=== PATIENT | male | born 1990 | race Caucasian/White ===

== ENCOUNTER 2018-12-26 02:14 | Inpatient (IN) | payer BC ==
[2018-12-26] MEDS ORDERED: MEPERIDINE HCL 50 MG/ML ONE (02:35)
[2018-12-26] MEDS ORDERED: MAGNE/ALUM HYDROXD 30 ML UCUP ONE (02:35)
[2018-12-26] MEDS ORDERED: ONDANSETRON 4 MG/2 ML VIAL ONE (02:35)
[2018-12-26] MEDS ORDERED: NA CHLORIDE 0.9% 500 ML ONE (02:36)
[2018-12-26] MEDS ORDERED: LIDOCAINE VISCOUS 2% SOLN 15 ML UDC ONE (02:36)
[2018-12-26 03:03] LABS: Potassium 3.7 mmol/L (3.5-5.1)
[2018-12-26 03:04] LABS: Absolute Lymphocytes (CBC) 3.2 K/uL (0.7-4.9); Albumin 4.3 g/dL (3.4-5.0); Basophils % 0.7 % (0-1.3); Bilirubin Direct 0.1 mg/dL (0-0.2); Bilirubin Total 0.4 mg/dL (0.2-1.0); Hematocrit 41.9 % (39.6-49.0); Lymphocytes % 44.1 % (15.3-44.8); Protein, Total 8.4 g/dL (6.4-8.2); RBC Red Blood Cell Count 4.56 M/uL (4.33-5.43)
[2018-12-26] MEDS ORDERED: MORPHINE 4 MG/ML SYR ONE (03:20)
[2018-12-26] MEDS ORDERED: HYDROMORPHONE HCL 1 MG/ML INJ IV PRN ×3 (04:17→11:01)
[2018-12-26] MEDS ORDERED: MAGNESIUM HYDROXIDE 8% 30 ML PO PRN (04:17)
[2018-12-26] MEDS ORDERED: ONDANSETRON 4 MG/2 ML VIAL IV PRN (04:17)
[2018-12-26] MEDS ORDERED: ACETAMINOPHEN 500 MG TAB PO PRN (04:17)
--- NOTE | 2018-12-26 04:20 | ER ---
Nurse's Notes [facility] Name: Robert Olson Age: 28 yrs Sex: Male : 1990 Arrival Date: 12/26/2018 Time: 02:17 Bed 17 Private MD: Diagnosis: Ileus, unspecified;Intractable abdominal pain Presentation: 12/26 02:20 Presenting complaint: Patient states: Right upper quadrant abdominal pain since cc3 Friday but today is worst with nausea/vomiting. Transition of care: patient was not received from another setting of care. Onset of symptoms. Onset of symptoms was December 26, 2018. Risk Assessment: Do you want to hurt yourself or someone else? Patient reports no desire to harm self or others. Initial Sepsis Screen: Does the patient meet any 2 criteria? No. Patient's initial sepsis screen is negative. Does the patient have a suspected source of infection? Yes: Acute abdominal pain. Care prior to arrival: Medication(s) given: [place] 7.5 mg taken at home 30 mins BILL HIKER. 02:20 Method Of Arrival: Wheelchair cc3 02:20 Acuity: AMILCAR 3 cc3 Triage Assessment: 02:20 General: Appears in no apparent distress. uncomfortable, Behavior is cooperative, cc3 anxious. Pain: Complains of pain in right upper abdomen Pain currently is 10 out of 10 on a pain scale. Quality of pain is described as aching, Pain began 2-3 days ago. EENT: No signs and/or symptoms were reported regarding the EENT system. Neuro: Level of Consciousness is awake, alert, obeys commands, Oriented to person, place, time, situation, Appropriate for age. Cardiovascular: Denies chest pain, Heart tones S1 S2 present Capillary refill < 3 seconds in bilateral fingers Patient's skin is warm and dry. Respiratory: Airway is patent Respiratory effort is even, unlabored, Respiratory pattern is regular, symmetrical, Breath sounds are clear bilaterally. GI: Abdomen is flat, Bowel sounds present X 4 quads. Abd is soft X 4 quads Abdomen is tender to palpation in right upper abdomen. : No signs and/or symptoms were reported regarding the genitourinary system. Derm: Skin is intact, is healthy with good turgor, Skin is pink, warm \T\ dry. normal. Musculoskeletal: Circulation, motion, and sensation intact. Range of motion: intact in all extremities. Historical: - Allergies: 02:20 No Known Allergies; cc3 - PSHx: 02:20 Gastric Bypass; cc3 - Immunization history:: Adult Immunizations up to date. - Social history:: Smoking status: Patient/guardian denies using tobacco, never smoked. - Ebola Screening: : No symptoms or risks identified at this time. - Family history:: not pertinent. - Hospitalizations: : No recent hospitalization is reported. Screenin:20 Abuse screen: Denies threats or abuse. Denies injuries from another. Nutritional cc3 screening: No deficits noted. Tuberculosis screening: No symptoms or risk factors identified. Fall Risk Ambulatory Aid- None/Bed Rest/Nurse Assist (0 pts). Gait- Normal/Bed Rest/Wheelchair (0 pts) Mental Status- Oriented to own ability (0 pts). Assessment: 02:20 General: see triage assessment. cc3 03:13 Reassessment: Patient appears in no apparent distress at this time. Patient and/or cc3 family updated on plan of care and expected duration. Pain level reassessed. Patient is alert, oriented x 3, equal unlabored respirations, skin warm/dry/pink. Patient taken by cotton program technician to their department. 03:15 Reassessment: cotton program technician Alma called and said the patient cannot lie down in CT cc3 table because he is in so much pain, Dr. Davis informed and ordered for intravenous Morphine as charted and carried out. 04:30 Reassessment: Patient appears in no apparent distress at this time. Patient and/or cc3 family updated on plan of care and expected duration. Pain level reassessed. Patient is alert, oriented x 3, equal unlabored respirations, skin warm/dry/pink. Patient for admission, room available in 430, called for report but was told that the nurse who will receive will call me back. 04:45 Reassessment: HERMILO Fuchs called and report handed over to her for continuity cc3 of care and management. 05:00 Reassessment: Patient appears in no apparent distress at this time. Patient and/or cc3 family updated on plan of care and expected duration. Pain level reassessed. Patient is alert, oriented x 3, equal unlabored respirations, skin warm/dry/pink. Dr. Davis reviewed kub xray result post ngt insertion, tube was kinked so he ordered to put a new one. 05:20 Reassessment: Dr. Davis reviewed kub xray post ngt insertion and ordered to pull out cc3 the tube 2cm, then he ordered for another kub xray after pulling out 2cm of the ngt. 05:46 Reassessment: Dr. Davis reviewed kub xray post ngt insertion and confirmed that the cc3 placement is okay now. 05:48 Reassessment: Patient appears in no apparent distress at this time. Patient and/or cc3 family updated on plan of care and expected duration. Pain level reassessed. Patient is alert, oriented x 3, equal unlabored respirations, skin warm/dry/pink. Patient left ER for admission vitally stable by wheelchair escorted by me and the patient's family. No valuables left in the patient's room. Patient states symptoms have improved. Vital Signs: 02:20 BP 150 / 107; Pulse 78; Resp 20 S; Temp 98.1(O); Pulse Ox 100% on R/A; Weight 77.11 kg cc3 (R); Height 5 ft. 10 in. (177.80 cm) (R); Pain 10/10; 02:30 BP 147 / 95; Pulse 66; Resp 18 S; Pulse Ox 100% on R/A; cc3 03:00 BP 132 / 78; Pulse 67; Resp 18 S; Pulse Ox 100% on R/A; cc3 04:31 BP 158 / 92; Pulse 65; Resp 18 S; Pulse Ox 97% on R/A; cc3 05:25 BP 151 / 92; Pulse 70; Resp 17 S; Pulse Ox 100% on R/A; Pain 5/10; cc3 02:20 Body Mass Index 24.39 (77.11 kg, 177.80 cm) cc3 ED Course: 02:17 Patient arrived in ED. ag3 02:20 Rashel Davis MD is Attending Physician. rn 02:20 Patient has correct armband on for positive identification. Bed in low position. Call cc3 light in reach. Side rails up X 1. Pulse ox on. NIBP on. 02:20 Arm band placed on right wrist. cc3 02:28 Vonda Cisneros is Primary Nurse. cc3 02:32 Triage completed. cc3 02:35 Inserted saline lock: 20 gauge in right antecubital area, using aseptic technique. cc3 Blood collected. inserted by HERMILO Barkley. 03:22 Radiology exam delayed due to Patient can not tolerate exam at this time because of kw1 abdominal pain. Requested pain medication. 03:50 CT Abd/Pelvis - IV Contrast Only In Process Unspecified. EDMS 04:19 Tequila Nicholson MD is Hospitalizing Provider. rn 04:20 NGT: inserted 16 Fr. via right nare. verified placement of air over stomach, verified cc3 return of gastric contents, Placement verified by X-ray, to intermittent suction. Returned gastric contents. Patient tolerated well. 04:45 Patient admitted, IV remains in place. cc3 04:45 No provider procedures requiring assistance completed. cc3 04:52 X-ray completed. Portable x-ray completed in exam room. Patient tolerated procedure mh1 well. 05:00 NGT: Removed intact. cc3 05:05 NGT: inserted 16 Fr. via left nare. verified placement of air over stomach, verified cc3 return of gastric contents, Placement verified by X-ray, to intermittent suction. Returned gastric contents. Patient tolerated well. inserted by HERMILO Hendrickson. 05:45 X-ray completed. Portable x-ray completed in exam room. Patient tolerated procedure mh1 well. Administered Medications: 02:30 Drug: GI Cocktail without - (Maalox Suspension 30 ml, Lidocaine Liquid 2 % 15 cc3 ml) Route: PO; 03:00 Follow up: Response: No adverse reaction cc3 02:35 Drug: Demerol 50 mg {Note: RASS 0.} Route: IVP; Site: right antecubital; cc3 03:15 Follow up: Response: No adverse reaction; Pain is unchanged, physician notified; RASS: cc3 Alert and Calm (0) 02:35 Drug: NS 0.9% 500 ml Route: IV; Rate: bolus; Site: right antecubital; cc3 03:30 Follow up: Response: No adverse reaction; IV Status: Completed infusion; IV Intake: cc3 500ml 02:40 Drug: Zofran 4 mg Route: IVP; Site: right antecubital; cc3 03:00 Follow up: Response: No adverse reaction; Nausea is decreased cc3 03:20 Drug: morphine 4 mg {Note: RASS 0.} Route: IVP; Site: right antecubital; cc3 04:23 Follow up: Response: No adverse reaction; Pain is unchanged, physician notified cc3 04:30 Drug: Dilaudid 1 mg {Note: RASS 0.} Route: IVP; Site: right antecubital; cc3 05:00 Follow up: Response: No adverse reaction; Pain is decreased cc3 Intake: 03:30 IV: 500ml; Total: 500ml. cc3 Outcome: 04:19 Decision to Hospitalize by Provider. rn 04:45 Admitted to Tele accompanied by nurse, family with patient, via stretcher, with chart, cc3 Report called to HERMILO Fuchs 04:45 Condition: stable 04:45 Instructed on the need for admit, Demonstrated understanding of instructions. 05:51 Patient left the ED. cc3 Signatures: Dispatcher [employer] EDMS Shaina Partida 1 Rashel Davis MD MD rn Wilhelm, Kimberly kw1 Vonda Cisneros cc3 Yesenia Patel3 Corrections: (The following items were deleted from the chart) 06:42 05:25 BP 151 / 92; Pulse 70bpm; Resp 17bpm; Spontaneous; Pulse Ox 100% RA; cc3 cc3 06:48 02:20 Presenting complaint: Patient states: Right upper quadrant pain since Friday cc3 but today is worst. cc3
--- NOTE | 2018-12-26 04:21 | EDPHYS ---
Physician Documentation [facility] Name: Robert Olson Age: 28 yrs Sex: Male : 1990 Arrival Date: 12/26/2018 Time: 02:17 Bed 17 Private MD: ED Physician Rashel Davis HPI: 12/26 02:37 This 28 yrs old Male presents to ER via Wheelchair with complaints of rn Abdominal Pain. 02:37 The patient presents with abdominal pain in the epigastric area, in the upper abdomen, rn in the periumbilical area. Onset: The symptoms/episode began/occurred 3 day(s) ago. The symptoms do not radiate. Associated signs and symptoms: Pertinent positives: nausea, vomiting, Pertinent negatives: blood in stools, diarrhea, dysuria, fever, shortness of breath, testicular pain, vomiting blood. Modifying factors: The symptoms are alleviated by nothing, the symptoms are aggravated by food, touching the area. Severity of pain: At its worst the pain was moderate in the emergency department the pain is unchanged. The patient has not experienced similar symptoms in the past. REports mid and upper abd pain, began intermittently 3 days ago, worse this AM, assoc with nausea and vomiting from the pain, no fever, no diarrhea, had BM yesterday and formed, no blood. Reports gastric bypass in past without any complications. . Historical: - Allergies: 02:20 No Known Allergies; cc3 - PSHx: 02:20 Gastric Bypass; cc3 - Immunization history:: Adult Immunizations up to date. - Social history:: Smoking status: Patient/guardian denies using tobacco, never smoked. - Ebola Screening: : No symptoms or risks identified at this time. - Family history:: not pertinent. - Hospitalizations: : No recent hospitalization is reported. ROS: 02:37 Constitutional: Negative for fever, chills, and weight loss, Eyes: Negative for injury, rn pain, redness, and discharge, Neck: Negative for injury, pain, and swelling, Cardiovascular: Negative for chest pain, palpitations, and edema, Respiratory: Negative for shortness of breath, cough, wheezing, and pleuritic chest pain, Abdomen/GI: + abd pain and nausea/vomiting MS/Extremity: Negative for injury and deformity, Skin: Negative for injury, rash, and discoloration, Neuro: Negative for headache, weakness, numbness, tingling, and seizure. Exam: 02:37 Constitutional: This is a well developed, well nourished patient who is awake, alert, rn and in no acute distress. Constantly burping. Head/Face: Normocephalic, atraumatic. Eyes: Pupils equal round and reactive to light, extra-ocular motions intact. Lids and lashes normal. Conjunctiva and sclera are non-icteric and not injected. Cornea within normal limits. Periorbital areas with no swelling, redness, or edema. ENT: MMM Cardiovascular: Regular rate and rhythm. No pulse deficits. Respiratory: No increased work of breathing, no retractions or nasal flaring. Abdomen/GI: soft, + mid and upper/epigastric tenderness, no rebound or peritoneal signs. MS/ Extremity: Pulses equal, no cyanosis. Neurovascular intact. Full, normal range of motion. Equal circumference. Neuro: Awake and alert, GCS 15 Vital Signs: 02:20 BP 150 / 107; Pulse 78; Resp 20 S; Temp 98.1(O); Pulse Ox 100% on R/A; Weight 77.11 kg cc3 (R); Height 5 ft. 10 in. (177.80 cm) (R); Pain 10/10; 02:30 BP 147 / 95; Pulse 66; Resp 18 S; Pulse Ox 100% on R/A; cc3 03:00 BP 132 / 78; Pulse 67; Resp 18 S; Pulse Ox 100% on R/A; cc3 04:31 BP 158 / 92; Pulse 65; Resp 18 S; Pulse Ox 97% on R/A; cc3 05:25 BP 151 / 92; Pulse 70; Resp 17 S; Pulse Ox 100% on R/A; Pain 5/10; cc3 02:20 Body Mass Index 24.39 (77.11 kg, 177.80 cm) cc3 MDM: 02:20 Patient medically screened. rn 04:16 Differential diagnosis: bowel obstruction, cholecystitis, Cholelithiasis, gastritis, rn non-specific abd pain, pancreatitis, ileus. 04:18 Data reviewed: vital signs, nurses notes, lab test result(s), radiologic studies, CT rn scan, and as a result, I will admit patient. Counseling: I had a detailed discussion with the patient and/or guardian regarding: the historical points, exam findings, and any diagnostic results supporting the discharge/admit diagnosis, lab results, radiology results, the need for further work-up and treatment in the hospital. Response to treatment: the patient's symptoms have mildly improved after treatment, and as a result, I will admit patient. Admission orders: after a detailed discussion of the patient's condition and case, the admit orders are written by me. ED course: No definitive transition point on CT abdomen, most likely ileus, will hydrate, put NG tube, and admit to Dr. Nicholson with Dr. Fischer consult. . 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 Nursing instructed to insert NG tube, short, approx 10-15 cm shorter than normal given gastric bypass. Tolerated insertion without complication, will get KUB to eval placement. . 05:29 ED course: First NG tube coiled in esophagus, replacement placed by Charge nurse will Hendrickson, again, measuring about 15cm shorter than normal NG tube placement length, kub shows placement just below diaphragm, pulled back 3 cm to be overly cautious and getting small amounts of clear fluid/air return. . 12/26 02:27 Order name: Basic Metabolic Panel; Complete Time: 03:10 rn 12/26 02:27 Order name: CBC with Diff; Complete Time: 03:10 rn 12/26 02:27 Order name: Creatinine for Radiology; Complete Time: 03:03 rn 12/26 02:27 Order name: Hepatic Function; Complete Time: 03:10 rn 12/26 02:27 Order name: Lipase; Complete Time: 03:10 rn 12/26 04:22 Order name: Comprehensive Metabolic Panel EDMS 12/26 04:22 Order name: Comprehensive Metabolic Panel EDMS 12/26 04:23 Order name: CBC with Automated Diff EDMS 12/26 04:23 Order name: CBC with Automated Diff EDMS 12/26 04:23 Order name: Lipase EDMS 12/26 04:23 Order name: Lipase EDMS 12/26 04:23 Order name: Magnesium EDMS 12/26 04:23 Order name: Magnesium EDMS 12/26 04:23 Order name: Phosphorus EDMS 12/26 02:27 Order name: CT Abd/Pelvis - IV Contrast Only rn 12/26 04:23 Order name: Phosphorus EDMS 12/26 04:24 Order name: Abdomen Acute Series EDMS 12/26 04:24 Order name: CBC with Automated Diff EDMS 12/26 04:24 Order name: Comprehensive Metabolic Panel EDMS 12/26 04:24 Order name: Magnesium EDMS 12/26 04:25 Order name: XRCORAZON CALLAHANB rn 12/26 05:07 Order name: XRAY KUB rn 12/26 05:29 Order name: XRAY KUB rn 12/26 02:27 Order name: IV Saline Lock; Complete Time: 02:38 rn 12/26 02:27 Order name: Labs collected and sent; Complete Time: 02:38 rn 12/26 04:16 Order name: NG Tube; Complete Time: 04:20 rn 12/26 04:23 Order name: CONS Physician Consult EDMS 12/26 04:23 Order name: NPO EDMS Administered Medications: 02:30 Drug: GI Cocktail without - (Maalox Suspension 30 ml, Lidocaine Liquid 2 % 15 cc3 ml) Route: PO; 03:00 Follow up: Response: No adverse reaction cc3 02:35 Drug: Demerol 50 mg {Note: RASS 0.} Route: IVP; Site: right antecubital; cc3 03:15 Follow up: Response: No adverse reaction; Pain is unchanged, physician notified; RASS: cc3 Alert and Calm (0) 02:35 Drug: NS 0.9% 500 ml Route: IV; Rate: bolus; Site: right antecubital; cc3 03:30 Follow up: Response: No adverse reaction; IV Status: Completed infusion; IV Intake: cc3 500ml 02:40 Drug: Zofran 4 mg Route: IVP; Site: right antecubital; cc3 03:00 Follow up: Response: No adverse reaction; Nausea is decreased cc3 03:20 Drug: morphine 4 mg {Note: RASS 0.} Route: IVP; Site: right antecubital; cc3 04:23 Follow up: Response: No adverse reaction; Pain is unchanged, physician notified cc3 04:30 Drug: Dilaudid 1 mg {Note: RASS 0.} Route: IVP; Site: right antecubital; cc3 05:00 Follow up: Response: No adverse reaction; Pain is decreased cc3 Disposition: 12/26/18 04:19 Hospitalization ordered by Tequila Nicholson for Inpatient Admission. Preliminary diagnosis are Ileus, unspecified, Intractable abdominal pain. - Bed requested for Telemetry/MedSurg (Inpatient). - Status is Inpatient Admission. cc3 - Condition is Stable. - Problem is new. - Symptoms have improved. UTI on Admission? No Signatures: Dispatcher [employer] EDMS Shaina Estrada RN RN Rashel Davis MD MD rn Cordel, Charlene cc3 Corrections: (The following items were deleted from the chart) 04:24 04:19 Hospitalization Ordered by Tequila Nicholson MD for Inpatient Admission. Preliminary diagnosis is Ileus, unspecified; Intractable abdominal pain. Bed requested for Telemetry/MedSurg (Inpatient). Status is Inpatient Admission. Condition is Stable. Problem is new. Symptoms have improved. UTI on Admission? No. rn 05:51 04:24 12/26/2018 04:19 Hospitalization Ordered by Tequila Nicholson MD for Inpatient cc3 Admission. Preliminary diagnosis is Ileus, unspecified; Intractable abdominal pain. Bed requested for Telemetry/MedSurg (Inpatient). Status is Inpatient Admission. Condition is Stable. Problem is new. Symptoms have improved. UTI on Admission? No. mw
[2018-12-26] MEDS ORDERED: Levofloxacin500mg IV 500 MG/100 ML BAG IV SCH (05:00)
[2018-12-26] MEDS ORDERED: NA CHLORIDE 0.9% 1,000 ML IV SCH ×2 (05:00→12:00)
[2018-12-26] MEDS ORDERED: KCL 20 MEQ/100 mL IVPB 20 MEQ/100 ML BAG IV SCH (05:00)
[2018-12-26] MEDS ORDERED: METRONIDAZOLE 500mg IVPB 500 MG/100 ML BAG IV SCH (06:00)
[2018-12-26 06:02] VITALS: O2SAT 100
[2018-12-26 06:10] VITALS: BMI 25.0
--- NOTE | 2018-12-26 07:54 | P.HP ---
Certification for Inpatient Patient admitted to: Inpatient With expected LOS: >2 Midnights Patient will require the following post-hospital care: None Practitioner: I am a practitioner with admitting privileges, knowledge of patient current condition, hospital course, and medical plan of care. Services: Services provided to patient in accordance with Admission requirements found in Title 42 Section 412.3 of the Code of Federal Regulations Patient History Date of Service: 12/26/18 Reason for admission: Ileus versus small-bowel obstruction History of Present Illness: Patient is a 28-year-old gentleman who has a history of laparoscopic gastric bypass procedure. He started having abdominal pain on . He took a laxative as he felt constipated. He was able to have a bowel movement Friday morning. He has not had a bowel movement since then. He has not been passing gas either. He was having nausea and vomiting so he came into the emergency room. In the ER his CT scan revealed a possible ileus versus early small-bowel obstruction. He will be admitted to the hospital with NG tube to suction. IV hydration and IV antibiotics for now. Hopefully, he starts feeling better and we can clamp his NGT tomorrow. Allergies No Known Allergies Allergy (Verified 12/26/18 05:59) Home Medications: NK [No Home Meds] 12/26/18 - Past Medical/Surgical History Has patient received pneumonia vaccine in the past: No Past Medical History: Patient denies medical history -: Gastric Bypass January 2018 - Family History Father Family History: Reviewed- Non-Contributory - Social History Smoking Status: Never smoker Alcohol use: No CD- Drugs: No Caffeine use: No Place of Residence: Home Review of Systems 10-point ROS is otherwise unremarkable Physical Examination - Vital Signs Temperature: 97.6 F Blood Pressure: 170/88 Pulse: 60 Respirations: 20 Pulse Ox (%): 100 - Physical Exam General: Alert, In no apparent distress, Oriented x3 HEENT: Atraumatic, PERRLA, Mucous membr. moist/pink, EOMI, Sclerae nonicteric Neck: Supple, 2+ carotid pulse no bruit, No LAD, Without JVD or thyroid abnormality Respiratory: Clear to auscultation bilaterally, Normal air movement Cardiovascular: Regular rate/rhythm, Normal S1 S2, No murmurs Gastrointestinal: Normal bowel sounds, Soft and benign, No tenderness, Distended Musculoskeletal: No clubbing, No swelling, No tenderness Integumentary: No rashes Neurological: Normal gait, Normal speech, Normal strength at 5/5 x4 extr, Normal tone, Sensation intact, Cranial nerves 3-12 intact, Normal affect Lymphatics: No axilla or inguinal lymphadenopathy - Studies Laboratory Data (last 24 hrs) 12/26/18 02:30: Creatinine 1.03 12/26/18 02:30: WBC 7.2, Hgb 14.1, Hct 41.9, Plt Count 298 12/26/18 02:30: Sodium 140, Potassium 3.7, BUN 19 H, Creatinine 1.04, Glucose 89 , Total Bilirubin 0.4, AST 29, ALT 56, Alkaline Phosphatase 91, Lipase 227 Assessment & Plan - Problems (Diagnosis) (1) Ileus Current Visit: Yes Status: Acute (2) SBO (small bowel obstruction) Current Visit: Yes Status: Acute (3) H/O gastric bypass Current Visit: Yes Status: Acute - Plan 1. Continue with IV hydration 2. Continue with IV antibiotics 3. Continue with pain control 4. NPO 5. General surgery consultation; 6. Serial H&H, and we will monitor CBC, BMP, LFTs and lipase along with electrolytes. 7. GI and DVT prophylaxis Discharge Plan: Home Plan to discharge in: Greater than 2 days - Advance Directives Does patient have a Living Will: No Does patient have a Durable POA for Healthcare: No - Code Status/Comfort Care Code Status Assessed: Yes Code Status: Full Code Critical Care: No Time Spent Managing PTS Care (In Minutes): 45
[2018-12-26] MEDS ORDERED: INFLUENZA VACCINE (for 3y+) 0.5 ML DOSE IMVAC ONE (09:00)
[2018-12-26] MEDS ORDERED: ENOXAPARIN 30 MG/0.3 ML SQ SCH (09:00)
[2018-12-26] MEDS ORDERED: HYDROMORPHONE HCL 1 MG/ML INJ IV ONE ×2 (09:30→09:31)
[2018-12-26 10:00] LABS: Absolute Lymphocytes (CBC) 0.5 K/uL (0.7-4.9); Basophils % 0.1 % (0-1.3); Hematocrit 42.6 % (39.6-49.0); Lymphocytes % 5.3 % (15.3-44.8); MPV 8.9 fL (7.6-11.3); RBC Red Blood Cell Count 4.59 M/uL (4.33-5.43)
--- NOTE | 2018-12-26 10:56 | RAD REPORT ---
EXAM DESCRIPTION: RAD - Chest Single View - 12/26/2018 4:52 am CLINICAL HISTORY: post ngt insertion Chest pain. COMPARISON: CHEST SINGLE VIEW dated 03/01/2012 FINDINGS: Portable technique limits examination quality. The lungs are grossly clear. The heart is normal in size. NG tube appears folded on itself at the mid esophagus level. Suggests repositioning.
--- NOTE | 2018-12-26 10:59 | RAD REPORT ---
EXAM DESCRIPTION: RAD - Abdomen 1 View (KUB) - 12/26/2018 4:52 am CLINICAL HISTORY: NG tube placement Pain COMPARISON: No comparisons FINDINGS: NG tube remains coiled on itself with the midesophagus level.
--- NOTE | 2018-12-26 10:59 | RAD REPORT ---
EXAM DESCRIPTION: RAD - Abdomen 1 View (KUB) - 12/26/2018 5:30 am CLINICAL HISTORY: NG tube placement Pain COMPARISON: Abdomen 1 View (KUB) dated 12/26/2018 FINDINGS: NG tube has been repositioned with its tip in the stomach.
[2018-12-26] MEDS ORDERED: GLUCAGON 1 MG/VIAL IM PRN (11:00)
[2018-12-26] MEDS ORDERED: PIPER/TAZO/NS 3.375gm 3.375 GM/100 ML BAG IVPB ONE (11:00)
[2018-12-26] MEDS ORDERED: D50W 25 GM/50 ML SYRINGE IV PRN (11:00)
--- NOTE | 2018-12-26 11:00 | RAD REPORT ---
EXAM DESCRIPTION: RAD - Abdomen 1 View (KUB) - 12/26/2018 5:45 am CLINICAL HISTORY: NG tube positioning Pain COMPARISON: Abdomen 1 View (KUB) dated 12/26/2018; Abdomen 1 View (KUB) dated 12/26/2018 FINDINGS: NG tube tip is in the stomach proximally.
[2018-12-26 11:03] LABS: Albumin 4.4 g/dL (3.4-5.0); Bilirubin Total 0.5 mg/dL (0.2-1.0); Magnesium 1.8 mg/dL (1.8-2.4); Potassium 4.8 mmol/L (3.5-5.1); Protein, Total 8.6 g/dL (6.4-8.2)
[2018-12-26] MEDS ORDERED: INSULIN -REGULAR HUMAN 50 UNIT/0.5 ML ML SQ SCH (11:30)
--- NOTE | 2018-12-26 11:56 | P.DS ---
Admission Date: 12/26/18 Discharge Date: 12/29/18 Disposition: TRANSFER TO [facility] Discharge Condition: FAIR Reason for Admission: Ileus versus small-bowel obstruction Consultations: General Surgery-Dr. Fischer. - Problems (1) H/O gastric bypass Status: Acute (2) Ileus Status: Acute (3) SBO (small bowel obstruction) Status: Acute Brief History of Present Illness: 28-year-old gentleman with a history of laparoscopic gastric bypass surgery done in January 2018 presented to the emergency department with a 2 day history of abdominal pain, nausea and vomiting and constipation. CT scan done in the emergency department report small-bowel dilatation and air- fluid levels consistent partial bowel obstruction or ileus. Patient was admitted for further management. Hospital Course: NG-tube to suction was inserted with no significant. His pain was uncontrolled , and his pain level deemed disproportionate to findings on physical examination. The patient was evaluated by Dr. Fischer, who expressed concern for volvolus with ischemic bowel. Patient and family contacted Dr. Heredia at [facility] who performed his gastric bypass surgery. Dr. Heredia recommended transfer to his service for urgent surgery. Patient is deemed clinically stable for transfer at this time. Vital Signs/Physical Exam: Temp Pulse Resp BP Pulse Ox 97.1 F 73 16 149/84 H 98 12/26/18 08:00 12/26/18 08:00 12/26/18 10:01 12/26/18 08:00 12/26/18 10:01 General: Alert, Oriented x3, Moderate distress (Due to pain) HEENT: Mucous membr. moist/pink Neck: Supple, JVD not distended Respiratory: Clear to auscultation bilaterally, Normal air movement Cardiovascular: No edema, Regular rate/rhythm, Normal S1 S2 Capillary refill: <2 Seconds Gastrointestinal: Non-distended, Hyperactive, Tenderness (Diffuse tenderness) Musculoskeletal: No swelling Integumentary: No rashes Laboratory Data at Discharge: WBC 9.4 K/uL (4.3-10.9) D 12/26/18 09:45 Hgb 14.3 g/dL (13.6-17.9) 12/26/18 09:45 Hct 42.6 % (39.6-49.0) 12/26/18 09:45 Plt Count 305 K/uL (152-406) 12/26/18 09:45 Sodium 137 mmol/L (136-145) 12/26/18 09:45 Potassium 4.8 mmol/L (3.5-5.1) 12/26/18 09:45 BUN 16 mg/dL (7-18) 12/26/18 09:45 Creatinine 1.05 mg/dL (0.55-1.3) 12/26/18 09:45 Glucose 175 mg/dL (74-106) H 12/26/18 09:45 Magnesium 1.8 mg/dL (1.8-2.4) 12/26/18 09:45 Total Bilirubin 0.5 mg/dL (0.2-1.0) 12/26/18 09:45 AST 28 U/L (15-37) 12/26/18 09:45 ALT 54 U/L (12-78) 12/26/18 09:45 Alkaline Phosphatase 90 U/L (45-117) 12/26/18 09:45 Lipase 227 U/L (73-393) 12/26/18 02:30 Home Medications: NK [No Home Meds] 12/26/18
[2018-12-26 12:30] VITALS: BP 148/90; TEMP 97.9
[2018-12-26 12:45] LABS: Blood Morphology Comment NOT SEEN (NOT SEEN); Platelet Estimate ADEQ
--- NOTE | 2018-12-26 16:26 | CON ---
Date of Consultation: 12/26/2018 Reason For Consultation: Possible small bowel obstruction. Brief History Of Present Illness: The patient is a 28-year-old gentleman with a history of laparoscopic gastric bypass procedure approximately in January [address] Dominique in [place]. He started having abdominal pain beginning Friday evening, morning, and started feeling wors ening abdominal bloating, distention, nausea, and abdominal pain. He took a laxative and felt that priti e was concerned about constipation. He is able to have a bowel movement on Friday morning. He has h ad this intermittently from time to time, but it got progressively worse over the course of the day. As such he came to the emergency room with the above-stated complaints. He has had decreased bowel function, decreased passing gas, nausea, vomiting, and at that time he came to the emergency room wit h the above-stated complaints. Past Medical History: Only significant for Anais-en-Y gastric bypass in January 2018. Allergies: NO KNOWN DRUG ALLERGIES. Medications: None. Family History: Reviewed and noncontributory. He denies smoking, alcohol, or recreational drug use. Review of Systems: A 10-point review of systems other than HPI, denies. Physical Examination: Vital Signs: At the time of my examination, his BMI is 25. His vital signs were blood pressure 149/ 84, pulse of 72, respiratory rate 16, temperature 97.1. General: He is awake, alert, and oriented. Psychiatric: He is appropriate and conversive. He appears somewhat uncomfortable and is sitting up in bed, grabbing his abdomen and appears in obqu-ms-itdudaut distress. HEENT: Otherwise normocephalic. His sclerae are anicteric. His mucous membranes are somewhat dry. His oropharynx is otherwise clear. Neck: Supple. No JVD. Chest: Normal expansion and excursion. Cardiovascular: Regular rate and rhythm. Pulmonary: Clear to auscultation bilaterally. Abdomen: Soft with minimal tenderness globally and minimal distention to the left side of the abdome n. No guarding. No rebound. No focal peritonitis. Extremities: No clubbing, cyanosis, or edema. Skin: Warm and dry. Laboratory Data: White blood cell count of 9.4, his hemoglobin is 14.1, hematocrit of 41.9, platelet count is 298 on admission. I have reordered his labs. His neutrophils are 92 at this point up from 45 on admission. His sodium is 137, potassium 4.8, chloride 102, carbon dioxide 25, BUN 16, creatin ine 1.05, glucose is 175 up from 89 on admission. Lactic acid is 2.9, drawn just now. His calcium i s 9.0. Magnesium 1.8. Total bilirubin 0.5. His AST is 28, ALT 54, alkaline phosphatase is 90. His lipase was 227 on admission. His procalcitonin is less than 0.05. Imaging: He had a CT scan performed of the abdomen and pelvis. I personally reviewed with Dr. Corrales. He has some distended loops of small bowel in the left lower quadrant concerning for an internal he rnia. It is not obviously seen, however, and there was no obvious transition point. There is some m inimal wall thickening to the small bowel loops by my interpretation. No obvious mesenteric swirling and no obvious Rees defect type obstructive picture. Assessment And Plan: This is a 28-year-old male who comes in with likely bowel obstruction, possibly from an internal hernia and pain out of proportion to physical exam concerning for ischemia. 1.Intravenous fluid hydration. I will give him a bolus of IV fluids. 2.Change antibiotics to Zosyn 3.375 IV q.6. 3.The patient and family have requested transfer to Dr. Dominique and I have spoken to Dr. Dominique, who call ed me specifically to ask that the patient be transferred. The patient is hemodynamically stable at this time. I have reviewed this with Dr. Cavazos. Dr. Cavazos will initiate transfer to [place]. Dr Gladys Dominique has accepted the patient in [place] and hospital apparently has accepted the patient. Theref ore, he is hemodynamically stable and stable for transfer. I have discussed the case with Dr. Catina sher nd the risks, benefits, and alternatives of the transfer versus staying here for possible exploratory laparoscopy, possible laparotomy including, but not limited to bleeding, infection, damage to surrou nding tissue, need for further operation or procedures. Patient agrees to proceed as indicated. SENTHIL/RADHA Voice ID: [id number] Report ID: [id number]
--- NOTE | 2018-12-28 11:55 | RAD REPORT ---
EXAM DESCRIPTION: CT Abdomen and Pelvis With Intravenous Contrast CLINICAL HISTORY: The patient is 28 years old and is Male; mid abd pain, vomiting TECHNIQUE: Axial computed tomography images of the abdomen and pelvis with intravenous contrast. S agittal and coronal reformatted images were created and reviewed. This CT exam was performed using one or more of the following dose reduction techniques: automated exposure control, adjustment of t he mA and/or kV according to patient size, and/or use of iterative reconstruction technique. COMPARISON: No relevant prior studies available. FINDINGS: LUNG BASES: Unremarkable. No mass. No consolidation. ABDOMEN: LIVER: Unremarkable. No mass. GALLBLADDER AND BILE DUCTS: No calcified stones. No ductal dilation. PANCREAS: No ductal dilation. No mass. SPLEEN: Unremarkable. ADRENALS: Unremarkable. No mass. KIDNEYS AND URETERS: Unremarkable. The kidneys enhance symmetrically. No obstructing renal or ur eteral calculus is seen. No hydronephrosis or hydroureter. No perinephric fluid or stranding. STOMACH AND BOWEL: Postsurgical change consistent with a gastric bypass is noted. Several dilate d loops of small bowel present within the right abdomen with air-fluid levels. Definite transition po int is not seen. A moderate amount stool is present throughout colon. PELVIS: APPENDIX: The appendix is normal in caliber without surrounding inflammation. BLADDER: Unremarkable. No mass. REPRODUCTIVE: Unremarkable as visualized. ABDOMEN and PELVIS: INTRAPERITONEAL SPACE: Trace free fluid is present within the pelvis. No free air. BONES/JOINTS: No acute fracture. SOFT TISSUES: The soft tissues are normal. VASCULATURE: Unremarkable. No abdominal aortic aneurysm. LYMPH NODES: Unremarkable. No enlarged lymph nodes. IMPRESSION: Findings suggestive of small bowel ileus/developing obstruction. Electronically signed by: Kelsey Staley MD 12/26/2018 3:56 AM CDT Due to temporary technical issues with the PACS/Fluency reporting system, reports are being signed by the in house radiologist as a courtesy to ensure prompt reporting. The interpreting radiologist is f eberly responsible for the content of the report.
== END 2018-12-26 13:00 | disposition short-term general hospital (02) | DRG 390 ==
LOC: ER 02:14 → 4TH 04:49
PROVIDERS: ADMIT Hospitalist; ATTEND Hospitalist
DX: K56.609 Unspecified intestinal obstruction, unspecified as to partial versus complete obstruction (principal); K56.7 Ileus, unspecified; Z98.84 Bariatric surgery status
CPT/HCPCS: 36415; 71045; 74018; 74177; 80048; 80053; 80076; 82962; 83605; 83690; 83735; 84145; 85025; 86140; 96361; 96374; 96375; 99285; J1170; J1650; J2175; J2405; J2543; J7030; J7040; Q9967

== ENCOUNTER 2019-05-17 08:11 | Emergency (ER) | payer BC ==
[2019-05-17] MEDS ORDERED: NA CHLORIDE 0.9% 1,000 ML ONE (09:09)
[2019-05-17] MEDS ORDERED: CEFTRIAXONE/SWI 1gm 1 GM/10 ML SYR ONE (09:09)
[2019-05-17 09:12] LABS: Protime INR 1.06
[2019-05-17 09:15] LABS: Absolute Lymphocytes (CBC) 1.8 K/uL (0.7-4.9); Basophils % 0.9 % (0-1.3); Hematocrit 40.2 % (39.6-49.0); MPV 8.8 fL (7.6-11.3); RBC Red Blood Cell Count 4.22 M/uL (4.33-5.43)
[2019-05-17 09:16] LABS: Urine Appearance CLOUDY; Urine Blood 3+ (NEG); Urine Color OTHER; Urine Glucose NEGATIVE (NEG); Urine Protein 3+ (NEG); Urine Specific Gravity 1.025 (1.005-1.030)
[2019-05-17 09:17] LABS: Urine Bilirubin NEGATIVE (NEG)
[2019-05-17 09:18] LABS: Urine Microscopic Reflex ORDER UMIC
[2019-05-17 09:20] LABS: Calcium Oxalate Crystals- Ur PRESENT (NONE SEEN); Urine Bacteria <20 /HPF (NONE SEEN); Urine Culture Reflex Order NOT NEEDED; Urine RBC TNTC /HPF (NONE SEEN)
[2019-05-17 09:23] LABS: ALT/SGPT 34 U/L (12-78); AST/SGOT 23 U/L (15-37); Albumin 3.6 g/dL (3.4-5.0); Alkaline Phosphatase 84 U/L (45-117); BUN Blood Urea Nitrogen 12 mg/dL (7-18); Bicarbonate 27 mmol/L (21-32); Bilirubin Total 0.4 mg/dL (0.2-1.0); Glucose Level 84 mg/dL (74-106); Potassium 4.2 mmol/L (3.5-5.1); Protein, Total 7.3 g/dL (6.4-8.2); Sodium Level 141 mmol/L (136-145)
--- NOTE | 2019-05-17 10:32 | RAD REPORT ---
EXAM DESCRIPTION: CT - Abdomen Pelvis W/Wo Contrast - 05/17/2019 10:06 am CLINICAL HISTORY: HEMATURIA COMPARISON: Abdomen Pelvis W Contrast dated 12/26/2018 TECHNIQUE: Biphasic, helical CT imaging of the abdomen and pelvis was performed following 100 ml non -ionic IV contrast. No oral contrast was given. All CT scans are performed using dose optimization technique as appropriate and may include automated exposure control or mA/KV adjustment according to patient size. FINDINGS: No suspicious findings in the lung bases. The liver, spleen, and pancreas show no suspicious findings. Gallbladder and biliary tree are also wi thout suspicious finding. Precontrast imaging shows no obstructing or nonobstructing calculi. Numerous phleboliths are seen in the pelvis matching the 2019 study. Arterial and venous phase imaging shows no parenchymal mass or en hancement abnormality. No hydronephrosis. No mass or intraluminal filling defects seen within the col lecting systems or urinary bladder. No bladder wall thickening or mass. No pyelonephritis. No bladder calculi or intraluminal abnormality. Prostate gland and seminal vesicles within normal range. No adr enal abnormalities. No dilated bowel loops or bowel wall thickening. Moderate stool volume is seen in the colon. No activ e bowel process seen. No free air, free fluid or inflammatory stranding. No hernia, mass or bulky ly mphadenopathy. Soft tissue in the subcutaneous periumbilical tissues has not changed. No suspicious bony findings. IMPRESSION: No abnormality identified to explain hematuria symptoms. Moderate stool volume in the colon. Postsurgical gastric bypass changes are present. No active GI pro cess. No significant change has occurred since December 2018.
--- NOTE | 2019-05-17 11:15 | ER ---
Nurse's Notes [facility] Name: Robert Olson Age: 28 yrs Sex: Male : 1990 Arrival Date: 05/17/2019 Time: 08:14 Bed 19 Private MD: Farhan Garza Diagnosis: Hematuria;Constipation;Urinary tract infection, site not specified Presentation: 05/16 08:29 Chief complaint: Patient states: darrin blood in urine since this morning. Denies pain/ ss discomfort. Coronavirus screen: The patient has NOT traveled to [place] in the past 14 days. Proceed with normal triage procedures. Ebola Screen: Patient denies exposure to infectious person. Patient denies travel to an Ebola-affected area in the 21 days before illness onset. Initial Sepsis Screen: Does the patient meet any 2 criteria? No. Patient's initial sepsis screen is negative. Does the patient have a suspected source of infection? No. Patient's initial sepsis screen is negative. Risk Assessment: Do you want to hurt yourself or someone else? Patient reports no desire to harm self or others. 08:29 Method Of Arrival: Ambulatory ss 08:29 Acuity: AMILCAR 3 ss 09:00 Onset of symptoms was May 17, 2019. ca1 Historical: - Allergies: 08:31 No Known Allergies; ss - Home Meds: 08:31 None [Active]; ss - PMHx: 08:31 None; ss - PSHx: 08:31 Gastric Bypass; ss - Immunization history:: Adult Immunizations up to date. - Social history:: Smoking status: Patient denies any tobacco usage or history of. - Family history:: not pertinent. Screenin:00 Abuse screen: Denies threats or abuse. Denies injuries from another. Nutritional ca1 screening: No deficits noted. Tuberculosis screening: No symptoms or risk factors identified. Fall Risk IV access (20 points). Assessment: 09:00 General: Appears in no apparent distress. comfortable, Behavior is calm, cooperative, ca1 appropriate for age. Pain: Denies pain. Neuro: Level of Consciousness is awake, alert, obeys commands, Oriented to person, place, time, situation, Appropriate for age. Cardiovascular: Heart tones S1 S2 present Capillary refill < 3 seconds Patient's skin is warm and dry. Respiratory: Airway is patent Respiratory effort is even, unlabored, Respiratory pattern is regular, symmetrical, Breath sounds are clear bilaterally. GI: Abdomen is flat, non-distended, Bowel sounds present X 4 quads. Abd is soft and non tender X 4 quads. : Urine is darrin blood, Reports bloody urine started this morning. EENT: No signs and/or symptoms were reported regarding the EENT system. Derm: Skin is intact, is healthy with good turgor, Skin is pink, warm \T\ dry. Musculoskeletal: Circulation, motion, and sensation intact. Capillary refill < 3 seconds, Range of motion: intact in all extremities. 10:06 Reassessment: Pt wheeled to CT. ca1 10:15 Reassessment: Patient appears in no apparent distress at this time. Patient and/or ca1 family updated on plan of care and expected duration. Pain level reassessed. Patient is alert, oriented x 3, equal unlabored respirations, skin warm/dry/pink. 11:11 Reassessment: Patient appears in no apparent distress at this time. Patient and/or ca1 family updated on plan of care and expected duration. Pain level reassessed. Patient is alert, oriented x 3, equal unlabored respirations, skin warm/dry/pink. Vital Signs: 08:29 Resp 15; Weight 74.84 kg; Height 5 ft. 10 in. (177.80 cm); Pain 0/10; ss 08:34 BP 117 / 73; Pulse 69; Temp 97.9(O); Pulse Ox 100% on R/A; ss 09:00 BP 113 / 73; Pulse 67; Resp 17 S; Pulse Ox 100% on R/A; ca1 09:30 BP 111 / 70; Pulse 66; Resp 16 S; Pulse Ox 100% on R/A; ca1 11:00 BP 119 / 73; Pulse 73; Resp 17 S; Pulse Ox 100% on R/A; ca1 08:29 Body Mass Index 23.67 (74.84 kg, 177.80 cm) ED Course: 08:14 Patient arrived in ED. mr 08:15 Farhan Garza MD is Private Physician. mr 08:17 Jalen Jasmine MD is Attending Physician[facility] 08:29 Viviana Degroot RN is Primary Nurse. ss 08:30 Triage completed. ss 08:31 Arm band placed on right wrist. ss 09:00 Patient has correct armband on for positive identification. Placed in gown. Bed in low ca1 position. Call light in reach. Side rails up X 1. Pulse ox on. NIBP on. Warm blanket given. 09:00 No provider procedures requiring assistance completed. Initial lab(s) drawn, by me, ca1 sent to lab. Inserted saline lock: 20 gauge in right antecubital area, using aseptic technique. Blood collected. 10:06 CT Abd/Pelvis- W/WO Contrast: plus delayed sequence In Process Unspecified. EDMS 11:13 Farhan Garza MD is Referral Physician. [facility] 11:13 Arthur Flynn MD is Referral Physician. jared 11:30 IV discontinued, intact, bleeding controlled, No redness/swelling at site. Pressure ca1 dressing applied. Administered Medications: 09:06 Drug: NS 0.9% 1000 ml Route: IV; Rate: 1 bolus; Site: right antecubital; ca1 11:00 Follow up: Response: No adverse reaction; IV Status: Completed infusion ca1 09:08 Drug: Rocephin 1 grams Route: IV; Rate: per protocol; Site: right antecubital; ca1 09:30 Follow up: Response: No adverse reaction; IV Status: Completed infusion ca1 11:20 Drug: Zithromax 1 grams Route: PO; ca1 11:29 Follow up: Response: Medication administered at discharge. ca1 Outcome: 11:14 Discharge ordered by . jared 11:30 Discharged to home ambulatory, with family. ca1 11:30 Condition: stable 11:30 Discharge instructions given to patient, Instructed on discharge instructions, follow up and referral plans. medication usage, Demonstrated understanding of instructions, follow-up care, medications, Prescriptions given X 2. 11:30 Patient left the ED. ca1 Signatures: Dispatcher [employer] Jalen Grant MD MD cha Rivera, Viviana Agee, HERMILO RN ss Gely Hough RN RN ca1 Corrections: (The following items were deleted from the chart) 08:31 08:29 Pulse 15bpm; 74.84 kg; Height 5 ft. 10 in.; BMI: 23.6; Pain 0/10; ss ss
--- NOTE | 2019-05-17 11:15 | EDPHYS ---
Physician Documentation [facility] Name: Robert Olson Age: 28 yrs Sex: Male : 1990 Arrival Date: 05/17/2019 Time: 08:14 Bed 19 Private MD: Farhan Garza ED Physician Jalen Jasmine HPI: 05/16 08:20 This 28 yrs old Male presents to ER via Unassigned with complaints of Urinary jared Problem. 08:20 The patient presents with urinary symptoms, hematuria. Onset: The symptoms/episode jared began/occurred just prior to arrival, this morning. Modifying factors: The symptoms are alleviated by nothing, the symptoms are aggravated by nothing. Associated signs and symptoms: The patient has no apparent associated signs or symptoms. Severity of symptoms: At their worst the symptoms were mild, in the emergency department the symptoms have improved, mildly. The patient has not experienced similar symptoms in the past. Historical: - Allergies: 08:31 No Known Allergies; ss - Home Meds: 08:31 None [Active]; ss - PMHx: 08:31 None; ss - PSHx: 08:31 Gastric Bypass; ss - Immunization history:: Adult Immunizations up to date. - Social history:: Smoking status: Patient denies any tobacco usage or history of. - Family history:: not pertinent. ROS: 08:20 Constitutional: Negative for fever, chills, and weight loss, Eyes: Negative for injury, jared pain, redness, and discharge, ENT: Negative for injury, pain, and discharge, Neck: Negative for injury, pain, and swelling, Cardiovascular: Negative for chest pain, palpitations, and edema, Respiratory: Negative for shortness of breath, cough, wheezing, and pleuritic chest pain, Abdomen/GI: Negative for abdominal pain, nausea, vomiting, diarrhea, and constipation, Back: Negative for injury and pain, MS/Extremity: Negative for injury and deformity, Skin: Negative for injury, rash, and discoloration, Neuro: Negative for headache, weakness, numbness, tingling, and seizure, Psych: Negative for depression, anxiety, suicide ideation, homicidal ideation, and hallucinations, Allergy/Immunology: Negative for hives, rash, and allergies, Endocrine: Negative for neck swelling, polydipsia, polyuria, polyphagia, and marked weight changes, Hematologic/Lymphatic: Negative for swollen nodes, abnormal bleeding, and unusual bruising. 08:20 : Positive for hematuria. Exam: 08:20 Constitutional: This is a well developed, well nourished patient who is awake, alert, jared and in no acute distress. Head/Face: Normocephalic, atraumatic. Eyes: Pupils equal round and reactive to light, extra-ocular motions intact. Lids and lashes normal. Conjunctiva and sclera are non-icteric and not injected. Cornea within normal limits. Periorbital areas with no swelling, redness, or edema. ENT: Nares patent. No nasal discharge, no septal abnormalities noted. Tympanic membranes are normal and external auditory canals are clear. Oropharynx with no redness, swelling, or masses, exudates, or evidence of obstruction, uvula midline. Mucous membranes moist. Neck: Trachea midline, no thyromegaly or masses palpated, and no cervical lymphadenopathy. Supple, full range of motion without nuchal rigidity, or vertebral point tenderness. No Meningismus. Chest/axilla: Normal chest wall appearance and motion. Nontender with no deformity. No lesions are appreciated. Cardiovascular: Regular rate and rhythm with a normal S1 and S2. No gallops, murmurs, or rubs. Normal PMI, no JVD. No pulse deficits. Respiratory: Lungs have equal breath sounds bilaterally, clear to auscultation and percussion. No rales, rhonchi or wheezes noted. No increased work of breathing, no retractions or nasal flaring. Abdomen/GI: Soft, non-tender, with normal bowel sounds. No distension or tympany. No guarding or rebound. No evidence of tenderness throughout. Back: No spinal tenderness. No costovertebral tenderness. Full range of motion. Male : Normal genitalia with no discharge or lesions. Skin: Warm, dry with normal turgor. Normal color with no rashes, no lesions, and no evidence of cellulitis. MS/ Extremity: Pulses equal, no cyanosis. Neurovascular intact. Full, normal range of motion. Neuro: Awake and alert, GCS 15, oriented to person, place, time, and situation. Cranial nerves II-XII grossly intact. Motor strength 5/5 in all extremities. Sensory grossly intact. Cerebellar exam normal. Normal gait. Psych: Awake, alert, with orientation to person, place and time. Behavior, mood, and affect are within normal limits. Vital Signs: 08:29 Resp 15; Weight 74.84 kg; Height 5 ft. 10 in. (177.80 cm); Pain 0/10; ss 08:34 BP 117 / 73; Pulse 69; Temp 97.9(O); Pulse Ox 100% on R/A; ss 09:00 BP 113 / 73; Pulse 67; Resp 17 S; Pulse Ox 100% on R/A; ca1 09:30 BP 111 / 70; Pulse 66; Resp 16 S; Pulse Ox 100% on R/A; ca1 11:00 BP 119 / 73; Pulse 73; Resp 17 S; Pulse Ox 100% on R/A; ca1 08:29 Body Mass Index 23.67 (74.84 kg, 177.80 cm) ss MDM: 08:22 Data reviewed: vital signs, nurses notes, lab test result(s), radiologic studies, CT jared scan. 08:22 Patient medically screened. [facility] 05/16 08:19 Order name: CBC with Diff; Complete Time: 10:06 jared 05/16 08:19 Order name: Comprehensive Metabolic Panel; Complete Time: 10:06 jared 05/16 08:19 Order name: Urine Culture [facility] 05/16 08:19 Order name: PT-INR; Complete Time: 10:06 jared 05/16 08:32 Order name: Urinalysis; Complete Time: 10:06 05/16 09:21 Order name: Urine Microscopic Only; Complete Time: 10:06 EDMS 05/16 08:19 Order name: Urine Dipstick-Ancillary (obtain specimen); Complete Time: 08:32 [facility] 05/16 08:29 Order name: CT Abd/Pelvis- W/WO Contrast: plus delayed sequence jared Administered Medications: 09:06 Drug: NS 0.9% 1000 ml Route: IV; Rate: 1 bolus; Site: right antecubital; ca1 11:00 Follow up: Response: No adverse reaction; IV Status: Completed infusion ca1 09:08 Drug: Rocephin 1 grams Route: IV; Rate: per protocol; Site: right antecubital; ca1 09:30 Follow up: Response: No adverse reaction; IV Status: Completed infusion ca1 11:20 Drug: Zithromax 1 grams Route: PO; ca1 11:29 Follow up: Response: Medication administered at discharge. ca1 Disposition: 05/17/19 11:14 Discharged to Home. Impression: Hematuria, Constipation, Urinary tract infection, site not specified. - Condition is Stable. - Discharge Instructions: Constipation, Adult, Hematuria, Adult, Urinary Tract Infection, Adult, Urinary Tract Infection, Adult, [id number]. - Prescriptions for Flomax 0.4 mg Oral Capsule, Sust. Release 24 hr - take 1 capsule by ORAL route once daily 1/2 hour following the same meal each day; 14 capsule. Cipro 500 mg Oral Tablet - take 1 tablet by ORAL route every 12 hours for 7 days; 14 tablet. - Medication Reconciliation Form, Thank You Letter, Antibiotic Education, Prescription Opioid Use, Work release form, Family Work Release form. - Follow up: Farhan Garza; When: 2 - 3 days; Reason: Recheck today's complaints, Continuance of care, Re-evaluation by your physician. Follow up: Arthur Flynn; When: 2 - 3 days; Reason: Recheck today's complaints, Re-evaluation by your physician. - Problem is new. - Symptoms have improved. Signatures: Dispatcher [employer] [facility] Jalen Jasmine MD MD cha Smirch, Shelby, RN RN ss Gely Hough RN RN ca1 Corrections: (The following items were deleted from the chart) 08:44 08:21 Stone Protocol+CT.RAD.BRZ ordered. [facility] 11:14 11:14 05/17/2019 11:14 Discharged to Home. Impression: Hematuria; Constipation. jared Condition is Stable. Discharge Instructions: Hematuria, Adult. Prescriptions for Flomax 0.4 mg Oral Capsule, Sust. Release 24 hr - take 1 capsule by ORAL route once daily 1/2 hour following the same meal each day; 14 capsule, Cipro 500 mg Oral Tablet - take 1 tablet by ORAL route every 12 hours for 7 days; 14 tablet. and Forms are Medication Reconciliation Form, Thank You Letter, Antibiotic Education, Prescription Opioid Use. Follow up: Farhan Garza; When: 2 - 3 days; Reason: Recheck today's complaints, Continuance of care, Re-evaluation by your physician. Follow up: Arthur Flynn; When: 2 - 3 days; Reason: Recheck today's complaints, Re-evaluation by your physician. Problem is new. Symptoms have improved. jared 11:30 11:14 05/17/2019 11:14 Discharged to Home. Impression: Hematuria; Constipation; Urinary ca1 tract infection, site not specified. Condition is Stable. Discharge Instructions: Hematuria, Adult. Prescriptions for Flomax 0.4 mg Oral Capsule, Sust. Release 24 hr - take 1 capsule by ORAL route once daily 1/2 hour following the same meal each day; 14 capsule, Cipro 500 mg Oral Tablet - take 1 tablet by ORAL route every 12 hours for 7 days; 14 tablet. and Forms are Medication Reconciliation Form, Thank You Letter, Antibiotic Education, Prescription Opioid Use. Follow up: Farhan Garza; When: 2 - 3 days; Reason: Recheck today's complaints, Continuance of care, Re-evaluation by your physician. Follow up: Arthur Flynn; When: 2 - 3 days; Reason: Recheck today's complaints, Re-evaluation by your physician. Problem is new. Symptoms have improved. jared
[2019-05-17] MEDS ORDERED: AZITHROMYCIN 250 MG TAB ONE (11:25)
[2019-05-17 11:37] VITALS: TEMP 97.9; O2SAT 100
[2019-05-17 11:41] VITALS: BP 119/73
== END 2019-05-17 11:30 | disposition home or self-care (01) ==
LOC: ER 08:11
DX: N39.0 Urinary tract infection, site not specified (principal); K59.00 Constipation, unspecified
CPT/HCPCS: 96365; 96361; 87088; 85025; 36415; 85610; 80053; 74178; 99284; Q9967; J0696; J7030; 81003; 81015; 87086

== ENCOUNTER 2019-08-16 00:37 | Emergency (ER) | payer BC ==
--- OUTSIDE RECORDS SUMMARY | 2019-08-16 00:40 | XMS REPORT ---
:1990 Author Organization [employer] Care Team Providers Name Role Phone Stanislav Edmondson Provider Role Unavailable Allergies, Adverse Reactions, Alerts Substance Reaction Event Type N.K.D.A. Info Not Available Non Drug Allergy Problems Problem Type Condition Code Onset Dates Condition Statu s Assessment Hematuria R31.9 Active Assessment Other urethral stricture N35.8 Act miguel Medications Medication Code Code Instructions Start End Status Dosage System Date Date Multi Vitamin ND 32686286875 - Orally Once a Active 1 tablet day Cipro ND 58019581674 500 MG Orally Active 1 tabl et every 12 hrs Tamsulosin HCl ND 97092441643 0.4 MG Orally Active 1 capsule Once a day Results No Known Results Summary Purpose [employer] Submission
--- OUTSIDE RECORDS SUMMARY | 2019-08-16 00:40 | XMS REPORT ---
:1990 Author Organization [facility] t Address [facility] [place] [address] Care Team Providers Name Role Phone Unavailable Unavailable Unavailable Problems Condition Condition Condition Status Onset Resolution Last Treating Co mments Source Name Details Category Date Date Treatment Clinician Date Hematuria Hematuria Diagnosis Active [facility] Other Other Diagnosis Active [facility] stricture stricture Derek fidel l [facility] Allergies, Adverse Reactions, Alerts This patient has no known allergies or adverse reactions. Medications Ordered Filled Start Stop Current Ordering Indication Dosage Frequency Signature Comments Components Source Medication Medication Date Date Medication? Clinician (SIG) Name Name Multi Multi Yes Stanislav [address] [facility] Vitamin Vitamin [facility] Cipro Cipro Yes Stanislav [address] [facility] Tamsulosin Tamsulosin Yes Stanislav [address] [facility] HCl HCl [facility] Procedures This patient has no known procedures. Encounters Start End Encounter Admission Attending Care Care Encounter Source Date/Time Date/Time Type Type Clinicians Facility Department ID 2019-06-08 2019-06-08 Outpatient Reuben Aldana [id number] [facility] 09:30:00 09:30:00 t Specialty/U [facility]ha [facility] - [facility] Results This patient has no known results.
[2019-08-16] MEDS ORDERED: NA CHLORIDE 0.9% 1,000 ML ONE (01:19)
[2019-08-16] MEDS ORDERED: MORPHINE 4 MG/ML SYR ONE (01:19)
[2019-08-16] MEDS ORDERED: ONDANSETRON 4 MG/2 ML VIAL ONE (01:19)
[2019-08-16 01:39] LABS: Basophils % 0.5 % (0-1.3); Hematocrit 42.2 % (39.6-49.0); Lymphocytes % 26.5 % (15.3-44.8); MPV 8.9 fL (7.6-11.3); RBC Red Blood Cell Count 4.58 M/uL (4.33-5.43)
[2019-08-16 01:49] LABS: ALT/SGPT 40 U/L (12-78); AST/SGOT 21 U/L (15-37); Alkaline Phosphatase 87 U/L (45-117); BUN Blood Urea Nitrogen 15 mg/dL (7-18); Bicarbonate 27 mmol/L (21-32); Bilirubin Direct 0.2 mg/dL (0-0.2); Bilirubin Total 0.5 mg/dL (0.2-1.0); Glucose Level 112 mg/dL (74-106); Lipase 97 U/L (73-393); Protein, Total 8.2 g/dL (6.4-8.2); Sodium Level 139 mmol/L (136-145)
[2019-08-16] MEDS ORDERED: FENTANYL CITR 100 MCG/2 ML ONE ×2 (01:54→03:04)
[2019-08-16 02:45] LABS: Urine Blood NEGATIVE (NEG); Urine Glucose NEGATIVE (NEG); Urine Protein NEGATIVE (NEG); Urine Specific Gravity >1.030 (1.005-1.030); Urine pH 5.5 (5.0-7.0)
[2019-08-16 03:26] VITALS: TEMP 97.7
[2019-08-16 03:29] VITALS: O2SAT 100
[2019-08-16 03:30] VITALS: BP 131/70
--- NOTE | 2019-08-16 15:45 | RAD REPORT ---
EXAM DESCRIPTION: CT - Abdomen Pelvis W Contrast - 08/16/2019 8:39 am CLINICAL HISTORY: ABD PAIN COMPARISON: 05/17/2019 TECHNIQUE: CT of the abdomen and pelvis performed following IV administration of iodinated contrast. FINDINGS: Lung Bases: The visualized lung bases are clear. Bones: No destructive bone lesions identified. Abdomen: Liver: The liver has normal size and density. No intrahepatic biliary dilatation. Gallbladder: No calcified gallstones. Spleen, Pancreas, and Adrenal Glands: The spleen, pancreas, and adrenal glands are unremarkable. Kidneys: No hydronephrosis or obstructing calculus. Vasculature: The aorta and IVC have normal caliber and position. The portal vein is patent. The pro ximal visceral and renal arteries are patent. Stomach: Prior gastric bypass surgery. Other: No free intraperitoneal air. Small amount of free fluid. Pelvis: Bladder: Urinary bladder is unremarkable. Bowel: Intermittent prominent loops of small bowel without continuity or definitive transition poin t. Mild wall thickening. Appendix: Normal appendix. Pelvis: Prostate is not enlarged. IMPRESSION: 1. Mild dilation of loops of small bowel without definite transition point identified an d mild wall thickening. Findings most compatible with nonspecific enteritis which may be of infectiou s or inflammatory etiology. If the patient continues to have pain follow-up imaging with oral contras t may be beneficial as early partial obstruction could create a similar appearance. This exam was performed according to our departmental dose-optimization program, which includes autom ated exposure control, adjustment of the mA and/or kV according to patient size and/or use of iterati ve reconstruction technique. Electronically signed by: Rudi Melendez 08/16/2019 2:44 AM CDT Due to temporary technical issues with the PACS/Fluency reporting system, reports are being signed by the in house radiologistwithout review asa courtesy toensure prompt reporting. The interpreting radi ologist is fully responsible for the content of the report.
--- NOTE | 2019-08-16 19:39 | EDPHYS ---
Physician Documentation [facility] Name: Robert Olson Age: 29 yrs Sex: Male : 1990 Arrival Date: 08/16/2019 Time: 00:42 Bed 17 Private MD: ED Physician Ben Kat HPI: 08/15 02:11 This 29 yrs old Male presents to ER via Ambulatory with complaints of pkl Abdominal Pain. 02:11 The patient presents with abdominal pain in the upper abdomen. Onset: The pkl symptoms/episode began/occurred today. The symptoms do not radiate. Associated signs and symptoms: Pertinent positives: nausea. H/O gastric by pass in 2018. Had bowel obstruction in 2018. Historical: - Allergies: 00:50 No Known Allergies; rr5 - Home Meds: 00:50 multivitamin oral oral [Active]; rr5 - PMHx: 00:50 None; rr5 - PSHx: 00:50 Gastric Bypass; rr5 - Immunization history:: Adult Immunizations up to date. - Social history:: Smoking status: unknown Patient/guardian denies using alcohol, street drugs, tobacco products. ROS: 02:11 Eyes: Negative for injury, pain, redness, and discharge, ENT: Negative for injury, pkl pain, and discharge, Neck: Negative for injury, pain, and swelling, Cardiovascular: Negative for chest pain, palpitations, and edema, Respiratory: Negative for shortness of breath, cough, wheezing, and pleuritic chest pain. 02:11 Abdomen/GI: Positive for abdominal pain, nausea, of the right upper quadrant and left upper quadrant. 02:11 Back: Negative for acute changes. 02:11 : Negative for urinary symptoms. 02:11 MS/extremity: Negative for acute changes. 02:11 Skin: Negative for rash. 02:11 Neuro: Negative for altered mental status. Exam: 02:11 Head/Face: Normocephalic, atraumatic. Eyes: Pupils equal round and reactive to light, pkl extra-ocular motions intact. Lids and lashes normal. Conjunctiva and sclera are non-icteric and not injected. Cornea within normal limits. Periorbital areas with no swelling, redness, or edema. ENT: Nares patent. No nasal discharge, no septal abnormalities noted. Tympanic membranes are normal and external auditory canals are clear. Oropharynx with no redness, swelling, or masses, exudates, or evidence of obstruction, uvula midline. Mucous membranes moist. Neck: Trachea midline, no thyromegaly or masses palpated, and no cervical lymphadenopathy. Supple, full range of motion without nuchal rigidity, or vertebral point tenderness. No Meningismus. Chest/axilla: Normal chest wall appearance and motion. Nontender with no deformity. No lesions are appreciated. Cardiovascular: Regular rate and rhythm with a normal S1 and S2. No gallops, murmurs, or rubs. Normal PMI, no JVD. No pulse deficits. Respiratory: Lungs have equal breath sounds bilaterally, clear to auscultation and percussion. No rales, rhonchi or wheezes noted. No increased work of breathing, no retractions or nasal flaring. 02:11 Abdomen/GI: Bowel sounds: normal, Palpation: soft, mild abdominal tenderness, in the right upper quadrant and left upper quadrant. 02:11 Back: Exam negative for acute changes. 02:11 : Exam negative for acute changes. 02:11 Musculoskeletal/extremity: Exam is negative for acute changes. 02:11 Skin: Exam negative for rash. 02:11 Neuro: Orientation: is normal, Mentation: is normal, Cranial nerves: grossly normal, Motor: is normal. Vital Signs: 00:50 BP 122 / 75; Pulse 89; Resp 19; Temp 97.7; Pulse Ox 99% ; Weight 77.11 kg; Height 5 ft. rr5 10 in. (177.80 cm); Pain 5/10; 01:40 BP 132 / 78; Pulse 61; Resp 16; Pulse Ox 99% ; rr5 03:00 BP 139 / 79; Pulse 85; Resp 17; Pulse Ox 100% ; Pain 6/10; rr5 03:17 BP 131 / 70; Pulse 80; Resp 16; Pulse Ox 100% ; Pain 5/10; rr5 00:50 Body Mass Index 24.39 (77.11 kg, 177.80 cm) rr5 MDM: 00:55 Patient medically screened. pkl 02:52 Data reviewed: vital signs, nurses notes, lab test result(s), radiologic studies, CT pkl scan. ED course: Patient feeling better. Discussed lab. and CT scan results with patient. Advised to follow up with his gastric by pass surgeon this morning for further evaluation. Patient understood instruction. 08/15 01:10 Order name: Urine Dipstick--Ancillary (enter results); Complete Time: 02:57 mt 08/15 01:11 Order name: Basic Metabolic Panel; Complete Time: 02:16 rr5 08/15 01:11 Order name: CBC with Diff; Complete Time: 01:47 rr5 08/15 01:11 Order name: Hepatic Function; Complete Time: 02:16 rr5 08/15 01:11 Order name: Lipase; Complete Time: 02:16 rr5 08/15 01:47 Order name: CT Abd/Pelvis - IV Contrast Only pkl 08/15 01:11 Order name: IV Saline Lock; Complete Time: 01:20 rr5 08/15 01:11 Order name: Labs collected and sent; Complete Time: 01:20 rr5 08/15 01:21 Order name: Urine Dipstick-Ancillary (obtain specimen); Complete Time: 01:21 rr5 Administered Medications: 01:18 Drug: NS 0.9% 1000 ml Route: IV; Rate: 1 bolus; Site: right antecubital; rr5 02:00 Follow up: Response: No adverse reaction; IV Status: Completed infusion; IV Intake: rr5 1000ml 01:18 Drug: Zofran (Ondansetron) 4 mg Route: IVP; Site: right antecubital; rr5 01:52 Follow up: Response: No adverse reaction rr5 01:21 Drug: morphine 4 mg {Note: rass 0.} Route: IVP; Site: right antecubital; rr5 01:50 Follow up: Response: No change in condition; RASS: Alert and Calm (0) rr5 01:50 Drug: fentaNYL (PF) 50 mcg {Note: rass 0.} Route: IVP; Site: right antecubital; rr5 02:45 Follow up: Response: No adverse reaction; Pain is decreased; RASS: Alert and Calm (0) rr5 03:01 Drug: fentaNYL (PF) 50 mcg {Note: rass 0.} Route: IVP; Site: right antecubital; rr5 03:19 Follow up: Response: No adverse reaction; RASS: Alert and Calm (0) rr5 Disposition: 08/16/19 02:56 Discharged to Home. Impression: Abdominal pain. - Condition is Stable. - Medication Reconciliation Form, Thank You Letter, Antibiotic Education, Prescription Opioid Use form. - Follow up: Private Physician; When: Today; Reason: Re-evaluation by your physician. - Problem is new. - Symptoms have improved. Signatures: Dispatcher [employer] EDBen Galo MD MD pkl Harry Brambila RN RN rr5 Corrections: (The following items were deleted from the chart) 03:19 02:56 08/16/2019 02:56 Discharged to Home. Impression: Abdominal pain. Condition is rr5 Stable. Forms are Medication Reconciliation Form, Thank You Letter, Antibiotic Education, Prescription Opioid Use. Follow up: Private Physician; When: Today; Reason: Re-evaluation by your physician. Problem is new. Symptoms have improved. pkl
--- NOTE | 2019-08-16 19:39 | ER ---
Nurse's Notes [facility] Name: Robert Olson Age: 29 yrs Sex: Male : 1990 Arrival Date: 08/16/2019 Time: 00:42 Bed 17 Private MD: Diagnosis: Abdominal pain Presentation: 08/15 00:50 Chief complaint: Patient states: i have abdominal pain started lunch time today and it rr5 gets worst now. Coronavirus screen: Proceed with normal triage. Ebola Screen: Patient negative for fever greater than or equal to 101.5 degrees Fahrenheit, and additional compatible Ebola Virus Disease symptoms Patient denies exposure to infectious person. Patient denies travel to an Ebola-affected area in the 21 days before illness onset. Initial Sepsis Screen: Does the patient meet any 2 criteria? No. Patient's initial sepsis screen is negative. Does the patient have a suspected source of infection? No. Patient's initial sepsis screen is negative. Risk Assessment: Do you want to hurt yourself or someone else? Patient reports no desire to harm self or others. Note had a gastric bypass 3 years ago then last year dec 2018 I had this almost similar abdominal pain and diagnosed that it got twisted, they have to life flight me. last BM this morning. Onset of symptoms was August 15, 2019. Care prior to arrival: Medication(s) given: laxative and gas X. 00:50 Method Of Arrival: Ambulatory rr5 00:50 Acuity: AMILCAR 3 rr5 Historical: - Allergies: 00:50 No Known Allergies; rr5 - Home Meds: 00:50 multivitamin oral oral [Active]; rr5 - PMHx: 00:50 None; rr5 - PSHx: 00:50 Gastric Bypass; rr5 - Immunization history:: Adult Immunizations up to date. - Social history:: Smoking status: unknown Patient/guardian denies using alcohol, street drugs, tobacco products. Screenin:55 Abuse screen: Denies threats or abuse. Denies injuries from another. Nutritional rr5 screening: No deficits noted. Tuberculosis screening: No symptoms or risk factors identified. Fall Risk IV access (20 points). Total Mckeon Fall Scale indicates No Risk (0-24 pts). Assessment: 01:00 General: Appears in no apparent distress. uncomfortable, ill, Behavior is calm, rr5 cooperative, appropriate for age. 01:00 Pain: Complains of pain in epigastric area, right lower quadrant and left lower rr5 quadrant Pain radiates to abdomen Pain currently is 5 out of 10 on a pain scale. Quality of pain is described as aching, Pain began gradually, Is continuous. Neuro: Level of Consciousness is awake, alert, obeys commands, Oriented to person, place, time, situation, Appropriate for age. Cardiovascular: Capillary refill < 3 seconds Patient's skin is warm and dry. Respiratory: Airway is patent Respiratory effort is even, unlabored, Respiratory pattern is regular, symmetrical. GI: Abdomen is non-distended, Bowel sounds Abdomen is tender to palpation X 4 quads. Reports lower abdominal pain, upper abdominal pain, cramping, gaseousness, nausea. : No signs and/or symptoms were reported regarding the genitourinary system. EENT: No signs and/or symptoms were reported regarding the EENT system. Derm: Skin is intact, is healthy with good turgor, Skin temperature is warm. Musculoskeletal: Circulation, motion, and sensation intact. Capillary refill < 3 seconds. 01:40 Reassessment: seen and examined by ED provider with order made and carried out Patient rr5 states symptoms have not improved. 02:17 Reassessment: Patient appears in no apparent distress at this time. Patient is alert, rr5 oriented x 3, equal unlabored respirations, skin warm/dry/pink. came back from CT scan. 02:55 Reassessment: Patient is alert, oriented x 3, equal unlabored respirations, skin rr5 warm/dry/pink. review done by ED provider.still with abdominal pain with order made and carried out, for discharge after giving the medication. 03:17 Reassessment: Patient appears in no apparent distress at this time. Patient is alert, rr5 oriented x 3, equal unlabored respirations, skin warm/dry/pink. discharge instruction given and explained without complaints made. Vital Signs: 00:50 BP 122 / 75; Pulse 89; Resp 19; Temp 97.7; Pulse Ox 99% ; Weight 77.11 kg; Height 5 ft. rr5 10 in. (177.80 cm); Pain 5/10; 01:40 BP 132 / 78; Pulse 61; Resp 16; Pulse Ox 99% ; rr5 03:00 BP 139 / 79; Pulse 85; Resp 17; Pulse Ox 100% ; Pain 6/10; rr5 03:17 BP 131 / 70; Pulse 80; Resp 16; Pulse Ox 100% ; Pain 5/10; rr5 00:50 Body Mass Index 24.39 (77.11 kg, 177.80 cm) rr5 ED Course: 00:42 Patient arrived in ED. bp1 00:43 Harry Brambila, HERMILO is Primary Nurse. rr5 00:54 Triage completed. rr5 00:55 Ben Kat MD is Attending Physician. pkl 00:55 Arm band placed on right wrist. rr5 01:00 Patient has correct armband on for positive identification. Bed in low position. Call rr5 light in reach. Pulse ox on. NIBP on. 01:18 No provider procedures requiring assistance completed. Inserted saline lock: 18 gauge rr5 in right antecubital area, using aseptic technique. Blood collected. 02:29 CT Abd/Pelvis - IV Contrast Only In Process Unspecified. EDMS 03:18 IV discontinued, intact, bleeding controlled, No redness/swelling at site. Pressure rr5 dressing applied. Administered Medications: 01:18 Drug: NS 0.9% 1000 ml Route: IV; Rate: 1 bolus; Site: right antecubital; rr5 02:00 Follow up: Response: No adverse reaction; IV Status: Completed infusion; IV Intake: rr5 1000ml 01:18 Drug: Zofran (Ondansetron) 4 mg Route: IVP; Site: right antecubital; rr5 01:52 Follow up: Response: No adverse reaction rr5 01:21 Drug: morphine 4 mg {Note: rass 0.} Route: IVP; Site: right antecubital; rr5 01:50 Follow up: Response: No change in condition; RASS: Alert and Calm (0) rr5 01:50 Drug: fentaNYL (PF) 50 mcg {Note: rass 0.} Route: IVP; Site: right antecubital; rr5 02:45 Follow up: Response: No adverse reaction; Pain is decreased; RASS: Alert and Calm (0) rr5 03:01 Drug: fentaNYL (PF) 50 mcg {Note: rass 0.} Route: IVP; Site: right antecubital; rr5 03:19 Follow up: Response: No adverse reaction; RASS: Alert and Calm (0) rr5 Intake: 02:00 IV: 1000ml; Total: 1000ml. rr5 Outcome: 02:56 Discharge ordered by . mason 03:18 Discharged to home via wheelchair. rr5 03:18 Condition: stable 03:18 Discharge instructions given to patient, Instructed on discharge instructions, follow up and referral plans. Demonstrated understanding of instructions, follow-up care. 03:19 Patient left the ED. rr5 Signatures: Dispatcher [employer] EDMS Ben Kat MD MD pkl Roque, Raymond RN RN rr5 Muna Mccoy [facility] Corrections: (The following items were deleted from the chart) 03:18 02:55 Reassessment: Patient is alert, oriented x 3, equal unlabored respirations, skin rr5 warm/dry/pink. review done by ED provider. patient is for discharge. still with abdominal pain with order made and carried out. rr5
== END 2019-08-16 03:19 | disposition home or self-care (01) ==
LOC: ER 00:37
DX: R10.10 Upper abdominal pain, unspecified (principal); Z98.84 Bariatric surgery status
CPT/HCPCS: 85025; 80048; 36415; 80076; 81003; 83690; 74177; Q9967; J3010 ×2; J7030; J2405; 96361; 96374; 96375; 99284

== ENCOUNTER 2023-07-22 11:37 | Emergency (ER) | payer OTHER ==
[2023-07-22] MEDS ORDERED: NA CHLORIDE 0.9% 1,000 ML ONE (12:13)
[2023-07-22] MEDS ORDERED: KETOROLAC 30 MG/ML INJ ONE (12:13)
[2023-07-22] MEDS ORDERED: MORPHINE 4 MG/ML SYR ONE (12:13)
[2023-07-22] MEDS ORDERED: ONDANSETRON 4 MG/2 ML VIAL ONE (12:13)
[2023-07-22 12:39] LABS: Absolute Eosinophils 0.1 K/uL (0-0.5); Absolute Lymphocytes (CBC) 1.7 K/uL (0.7-4.9); Absolute Monocytes 0.4 K/uL (0.1-1.3); Absolute Neutrophil 3.3 K/uL (1.8-8.0); Basophils % 0.7 % (0-1.3); Eosinophils % 1.2 % (0-4.4); Hematocrit 41.8 % (39.6-49.0); Hemoglobin 13.7 g/dL (13.6-17.9); Lymphocytes % 30.9 % (15.3-44.8); MCH 30.5 pg (27.0-35.0); MCHC 32.9 g/dL (32.0-36.0); MCV 92.7 fL (80-100); MPV 8.2 fL (7.6-11.3); Monocytes % 8.2 % (3.3-12.3); Platelets 309 thou/uL (152-406); RBC Red Blood Cell Count 4.51 M/uL (4.33-5.43); Red Cell Distribution Width 13.1 % (12.1-15.2)
[2023-07-22 12:40] LABS: Specific Gravity 1.005 (1.005-1.030); Sqamous Epithelial None Seen /HPF (None Seen); Urine Bacteria None Seen /HPF (<20); Urine Bilirubin NEGATIVE (Negative); Urine Blood 1+ (Negative); Urine Clarity Clear (Clear); Urine Color Light-Yellow (Yellow); Urine Culture Reflex Order NOT NEEDED; Urine Glucose NEGATIVE (Negative); Urine Ketones NEGATIVE (Negative); Urine Microscopic Reflex YN ORDER UMIC; Urine Mucus Slight /HPF (None Seen); Urine Nitrite NEGATIVE (Negative); Urine Protein NEGATIVE (Negative); Urine RBC <5 /HPF (None Seen); Urine Urobilinogen Normal (Normal); Urine WBC <5 /HPF (<5); Urine pH 5.5 (5.0-7.0)
--- NOTE | 2023-07-22 12:40 | RAD REPORT ---
EXAM DESCRIPTION: CTAbdomen Pelvis W Contrast - 07/22/2023 12:25 pm CLINICAL HISTORY: Abdominal pain. R flank pain COMPARISON: Abdomen Pelvis W Contrast dated 08/16/2019; Abdomen Pelvis W Contrast dated 12/26/2018 TECHNIQUE: Biphasic CT imaging of the abdomen and pelvis was performed with 100 ml non-ionic IV cont rast. All CT scans are performed using dose optimization technique as appropriate and may include automated exposure control or mA/KV adjustment according to patient size. FINDINGS: The lung bases are clear. The liver, spleen, pancreas, adrenal glands and left kidney are within normal limits. Mild right hydr onephrosis and hydroureter is present. There is a 5 mm stone in the urinary bladder in close approxim ation of the right UVJ. This may represent a recently passed stone from the right. Postsurgical changes are present involving the left bowel. There is evidence of a significant size inga wel intussusception along the left abdomen measuring 10-11 cm. There are postsurgical changes also no humberto in the bowel in this region. There is no bowel obstruction or free air. The appendix is normal. No evidence of significant lymphadenopathy. No suspicious bony findings. IMPRESSION: 5 mm stone in the urinary bladder in close approximation to the right UVJ likely represe nting recently passed calculus. Mild residual right-sided hydronephrosis. Bowel intussusception is noted along the left flank of the abdomen where postsurgical changes are als o seen. Often, these are transient in nature, however given the fairly large size recommend follow-up CT with oral contrast material for further evaluation.
[2023-07-22 12:54] LABS: Anion Gap 9.7 mEq/L (5.0-15.0); Bilirubin Total 0.6 mg/dL (0.2-1.0); Globulin 4.2 g/dL (2.3-3.5); Potassium 3.7 mEq/L (3.5-5.1); Protein, Total 8.2 g/dL (6.4-8.2)
[2023-07-22] MEDS ORDERED: SIMETHICONE 80 MG CHEWABLE TAB ONE (13:30)
--- NOTE | 2023-07-22 17:03 | RAD REPORT ---
EXAM DESCRIPTION: CT - Abdomen Pelvis Wo Contrast - 07/22/2023 3:18 pm CLINICAL HISTORY: intusseception? COMPARISON: Abdomen Pelvis W Contrast dated 07/22/2023; Abdomen Pelvis W Contrast dated 08/16/2019; Abdomen Pelvis W/Wo Contrast dated 05/17/2019; Abdomen Pelvis W Contrast dated 12/26/2018 TECHNIQUE: Thin cut axial CT imaging of the abdomen and pelvis was performed without IV contrast. Mu ltiplanar reformats were generated and reviewed. All CT scans are performed using dose optimization technique as appropriate and may include automated exposure control or mA/KV adjustment according to patient size. FINDINGS: No suspicious findings in the lung bases. The liver, spleen, adrenal glands, and pancreas show no suspicious findings. Gallbladder and biliary tree are also without suspicious finding. Symmetric renal contour, without suspicious parenchymal findings within limits of noncontrast techniq ue. No evidence of radiopaque calculi or hydroureteronephrosis. Sequelae of Anais-en-Y gastric bypass. Prominent process section in the left hemiabdomen seen on the p rior exam, which probably was in the region of the jejunojejunostomy is no longer visualized. Patulou s loop around the jejunojejunostomy is seen. Partial intussusception is seen in the central abdomen j ust deep to the umbilicus, see series 202, image 25 and series 201, image 42. Mild small bowel dilati on proximal to the partial intussusception. No bowel wall thickening. No free air, free fluid or infl ammatory stranding. No hernia, mass or bulky lymphadenopathy. The urinary bladder is without signific ant finding. No suspicious bony findings. IMPRESSION: Partial intussusception seen in the central abdomen, with mild proximal small bowel dila tion, may represent mild ileus. Region of intussusception in the left hemiabdomen on the jejunojejunostomy loop has since resolved.
--- NOTE | 2023-07-22 17:04 | EDPHYS ---
Physician Documentation [facility] Name: Robert Olson Age: 32 yrs Sex: Male : 1990 Arrival Date: 07/22/2023 Time: 11:37 Bed 7 Private MD: ED Physician Paul Fischer HPI: 07/21 12:09 This 32 yrs old Male presents to ER via Ambulatory with complaints of ec2 Possible Kidney Stone. 12:09 Patient arrives today for evaluation of right flank pain rating to the groin. Reports ec2 symptoms been ongoing for 1 day. Patient reports some associated nausea, no vomiting. Patient complaining of some darker colored urine as well. Denies any stool concerns. 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 No history of kidney stone. Patient also reports history of gastric bypass along with complication of a bowel obstruction.. Historical: - Allergies: 11:50 No Known Allergies; as6 - PMHx: 11:50 None; as6 - PSHx: 11:50 gastric bypass; bowel; as6 - Immunization history:: Adult Immunizations up to date. - Infectious Disease History:: Denies. - Social history:: Smoking status: Patient denies any tobacco usage or history of. ROS: 12:09 Constitutional: as per hpi ec2 Exam: 12:09 Constitutional: GEN: NAD Head: atraumatic Eyes: EOMI Ears: External ears are ec2 normal. CV: regular rate LUNGS: no respiratory distress ABD: non-distended, soft, tender in the right lower quadrant, no guarding, not rigid, right flank TTP. SKIN: no evidence of rashes MSK: no evidence of trauma NEURO: moves all extremities equally Vital Signs: 11:47 BP 148 / 81; Pulse 64; Resp 18 S; Temp 98.2(TE); Pulse Ox 100% on R/A; Weight 81.65 kg as6 (R); Height 5 ft. 10 in. (R); Pain 8/10; 12:00 BP 107 / 73; Pulse 64; Resp 18; Pulse Ox 100% on R/A; db 15:00 BP 132 / 87; Pulse 67; Resp 18; Pulse Ox 100% on R/A; db 17:00 BP 126 / 65; Pulse 50; Resp 16; Temp 98.1; Pulse Ox 100% ; db 11:47 Body Mass Index 25.83 (81.65 kg, 177.8 cm) as6 11:47 Pain Scale: Adult as6 MDM: 12:04 Patient medically screened. ec2 12:09 Data reviewed: vital signs. ED course: Patient arrives today for right flank pain. ec2 Examination remarkable for abdominal findings as above. Will obtain lab work, CT imaging, treat the patient pain and reassess. Evaluate for appendicitis, gallbladder pathology as well as ureteral stone. . 13:02 ED course: Metabolic profile reassuring, lipase is elevated at 325. Urine is ec2 noninfectious, blood present. CBC is reassuring, CT imaging shows 5 mm stone in the bladder showing a recently passed ureteral stone, residual hydronephrosis noted. Radiology comments regarding intussusception with recommendation for follow-up oral contrasted CT study. Will obtain this. . 16:41 ED course: During the patient time here he has been able to pass his ureteral stone.. ec2 17:02 ED course: Patient with no abdominal pain on reassessment. Pending CT imaging, we ec2 discussed significant wait time and ultimately decided will discharge patient and if patient begins to have abdominal pain or bloody stools he will return to the emergency department. Will discharge home. Return precautions given.. 07/21 12:08 Order name: CBC with Diff; Complete Time: 13:01 ec2 07/21 12:08 Order name: CMP; Complete Time: 13:01 ec2 07/21 12:08 Order name: Lipase; Complete Time: 13:01 ec2 07/21 12:08 Order name: Urinalysis w/ reflexes; Complete Time: 13:01 ec2 07/21 12:08 Order name: CT Abd/Pelvis - IV Contrast Only; Complete Time: 13:01 ec2 07/21 13:19 Order name: Abdomen ; Complete Time: 17:05 EDMS 07/21 12:08 Order name: IV Saline Lock; Complete Time: 12:11 ec2 07/21 12:08 Order name: Labs collected and sent; Complete Time: 12:11 ec2 Administered Medications: 12:20 Drug: NS 0.9% IV 1000 ml IV at 1 bolus Per protocol; 1000 mL bolus Route: IV; Rate: 1 rs5 bolus; Site: right antecubital; 17:17 Follow up: Response: No adverse reaction; IV Status: Completed infusion; IV Intake: db 1000ml 12:20 Drug: TORadol - Ketorolac IVP 15 mg IVP once Route: IVP; Site: right antecubital; rs5 17:18 Follow up: Response: No adverse reaction db 12:20 Drug: Ondansetron IVP 4 mg IVP once; over 2 minutes Route: IVP; Site: right antecubital;rs5 17:18 Follow up: Response: No adverse reaction db 12:20 Drug: morphine IVP or IV 4 mg IVP once over 4 mins Route: IVP; Infused Over: 4 mins; rs5 Site: right antecubital; 17:17 Follow up: Response: No adverse reaction db 13:30 Drug: Simethicone PO 120 mg PO once Route: PO; db 17:17 Follow up: Response: No adverse reaction db Disposition Summary: 07/22/23 17:03 Discharge Ordered Notes: Location: Home ec2 Condition: Stable ec2 Diagnosis - Calculus of ureter ec2 Followup: ec2 - With: Private Physician - When: - Reason: Re-evaluation by your physician Followup: ec2 - With: Vikash Galloway MD - When: - Reason: Recheck today's complaints Discharge Instructions: - Discharge Summary Sheet ec2 - Kidney Stones, Emlq-sd-Alji ec2 Forms: - Medication Reconciliation Form ec2 - Antibiotic Education ec2 - Prescription Opioid Use ec2 - Patient Portal Instructions ec2 - Leadership Thank You Letter ec2 Signatures: Dispatcher [employer] Mike Sumner RN RN as6 Minal Modi RN RN db Girish Pineda RN RN rs5 Paul Fischer MD MD ec2 Corrections: (The following items were deleted from the chart) 12:09 12:09 CBC+H.LAB.BRZ ordered. EDMS EDMS 12:09 12:09 COMPREHENSIVE METABOLIC PANEL+C.LAB.BRZ ordered. EDMS EDMS 12: 12:09 LIPASE+C.LAB.BRZ ordered. EDMS EDMS 12:09 12:09 Urinalysis+U.LAB.BRZ ordered. EDMS EDMS 13:19 13:11 Abdomen Pelvis W Con+CT.RAD.BRZ ordered. EDMS EDMS
--- NOTE | 2023-07-22 17:04 | ER ---
Nurse's Notes [facility] Name: Robert Olson Age: 32 yrs Sex: Male : 1990 Arrival Date: 07/22/2023 Time: 11:37 Bed 7 Private MD: Diagnosis: Calculus of ureter Presentation: 07/21 11:47 Chief complaint: Patient states: right sided flank pain. pt was told by urgent care it as6 was a kidney stone. Coronavirus screen: At this time, the client does not indicate any symptoms associated with coronavirus-19. Ebola Screen: No symptoms or risks identified at this time. Initial Sepsis Screen: Does the patient meet any 2 criteria? No. Patient's initial sepsis screen is negative. Does the patient have a suspected source of infection? No. Patient's initial sepsis screen is negative. Risk Assessment: Do you want to hurt yourself or someone else? Patient reports no desire to harm self or others. Onset of symptoms was July 22, 2023. 11:47 Method Of Arrival: Ambulatory as6 11:47 Acuity: AMILCAR 3 as6 Triage Assessment: 11:51 General: Appears uncomfortable, Behavior is cooperative, restless. Pain: Complains of as6 pain in back and abdomen. Historical: - Allergies: 11:50 No Known Allergies; as6 - PMHx: 11:50 None; as6 - PSHx: 11:50 gastric bypass; bowel; as6 - Immunization history:: Adult Immunizations up to date. - Infectious Disease History:: Denies. - Social history:: Smoking status: Patient denies any tobacco usage or history of. Screenin:33 [facility] ED Fall Risk Assessment (Adult) History of falling in the last 3 months, db including since admission No falls in past 3 months (0 pts) Confusion or Disorientation No (0 pts) Intoxicated or Sedated No (0 pts) Impaired Gait No (0 pts) Mobility Assist Device Used No (0 pt) Altered Elimination No (0 pt) Score/Fall Risk Level 0 - 2 = Low Risk Oriented to surroundings, Maintained a safe environment. Abuse screen: Denies threats or abuse. Denies injuries from another. Nutritional screening: No deficits noted. Tuberculosis screening: No symptoms or risk factors identified. Assessment: 11:55 General: Appears in no apparent distress. uncomfortable, Behavior is cooperative. Pain: rs5 Complains of pain in right sided flank pain Pain currently is 8 out of 10 on a pain scale. Quality of pain is described as aching, Is continuous. Neuro: Level of Consciousness is awake, alert, obeys commands, Oriented to person, place, time, situation. Cardiovascular: Patient's skin is warm and dry. Rhythm is regular. Respiratory: Airway is patent Respiratory effort is even, unlabored, Respiratory pattern is regular, symmetrical. GI: Abdomen is round non-distended, Bowel sounds present X 4 quads. Abd is soft and non tender X 4 quads. : No signs and/or symptoms were reported regarding the genitourinary system. EENT: No signs and/or symptoms were reported regarding the EENT system. Derm: Skin is pink, warm \T\ dry. Musculoskeletal: Range of motion: intact in all extremities. 14:00 Reassessment: Patient appears in no apparent distress at this time. Patient and/or db family updated on plan of care and expected duration. Pain level reassessed. Patient is alert, oriented x 3, equal unlabored respirations, skin warm/dry/pink. 16:00 Reassessment: Patient appears in no apparent distress at this time. Patient and/or db family updated on plan of care and expected duration. Pain level reassessed. Patient is alert, oriented x 3, equal unlabored respirations, skin warm/dry/pink. 17:15 Reassessment: Patient appears in no apparent distress at this time. Patient and/or db family updated on plan of care and expected duration. Pain level reassessed. Patient is alert, oriented x 3, equal unlabored respirations, skin warm/dry/pink. Patient states feeling better. Patient states symptoms have improved. General: Appears in no apparent distress. comfortable, Behavior is calm, cooperative. Vital Signs: 11:47 BP 148 / 81; Pulse 64; Resp 18 S; Temp 98.2(TE); Pulse Ox 100% on R/A; Weight 81.65 kg as6 (R); Height 5 ft. 10 in. (R); Pain 8/10; 12:00 BP 107 / 73; Pulse 64; Resp 18; Pulse Ox 100% on R/A; db 15:00 BP 132 / 87; Pulse 67; Resp 18; Pulse Ox 100% on R/A; db 17:00 BP 126 / 65; Pulse 50; Resp 16; Temp 98.1; Pulse Ox 100% ; db 11:47 Body Mass Index 25.83 (81.65 kg, 177.8 cm) as6 11:47 Pain Scale: Adult as6 ED Course: 11:39 Patient arrived in ED. im 11:42 Paul Fischer MD is Attending Physician. ec2 11:50 Triage completed. as6 11:51 Arm band placed on. as6 11:59 Girish Pineda, HERMILO is Primary Nurse. rs5 12:11 Initial lab(s) drawn, by al, sent to lab. Urine collected: clean catch specimen, clear. jg11 Inserted saline lock: 20 gauge in right antecubital area, using aseptic technique. Blood collected. 12:25 CBC with Diff Sent. jg11 12:25 CMP Sent. jg11 12:25 Lipase Sent. jg11 12:25 Urinalysis w/ reflexes Sent. jg11 12:27 CT Abd/Pelvis - IV Contrast Only In Process Unspecified. EDMS 12:40 CBC with Diff Sent. jg11 12:40 CMP Sent. jg11 12:40 Lipase Sent. jg11 12:40 Urinalysis w/ reflexes Sent. jg11 13:27 Warm blanket given. jg11 13:34 Patient has correct armband on for positive identification. Bed in low position. Call db light in reach. Side rails up X 1. Pulse ox on. NIBP on. 15:18 Abdomen In Process Unspecified. EDMS 17:03 Vikash Galloway MD is Referral Physician. ec2 17:16 Provided Education on: DISCHARGE AND FOLLOWUP. db 17:16 No provider procedures requiring assistance completed. IV discontinued, intact, db bleeding controlled, No redness/swelling at site. Administered Medications: 12:20 Drug: NS 0.9% IV 1000 ml IV at 1 bolus Per protocol; 1000 mL bolus Route: IV; Rate: 1 rs5 bolus; Site: right antecubital; 17:17 Follow up: Response: No adverse reaction; IV Status: Completed infusion; IV Intake: db 1000ml 12:20 Drug: TORadol - Ketorolac IVP 15 mg IVP once Route: IVP; Site: right antecubital; rs5 17:18 Follow up: Response: No adverse reaction db 12:20 Drug: Ondansetron IVP 4 mg IVP once; over 2 minutes Route: IVP; Site: right antecubital;rs5 17:18 Follow up: Response: No adverse reaction db 12:20 Drug: morphine IVP or IV 4 mg IVP once over 4 mins Route: IVP; Infused Over: 4 mins; rs5 Site: right antecubital; 17:17 Follow up: Response: No adverse reaction db 13:30 Drug: Simethicone PO 120 mg PO once Route: PO; db 17:17 Follow up: Response: No adverse reaction db Medication: 17:16 VIS not applicable for this client. db Intake: 17:17 IV: 1000ml; Total: 1000ml. db Outcome: 17:03 Discharge ordered by . ec2 17:16 Discharged to home ambulatory, with family, db 17:16 Condition: stable 17:16 Discharge instructions given to patient, Instructed on discharge instructions, follow up and referral plans. 17:18 Patient left the ED. db Signatures: Dispatcher [employer] Mike Sumner RN RN as6 Minal Modi RN RN db Girish Pineda RN RN rs5 Molly Dong Edwin, MD MD ec2 Christopher Fernandez [email or web address] Corrections: (The following items were deleted from the chart) 12:25 11:55 Pain: Complains of pain in RLQ Pain currently is 8 out of 10 on a pain scale. rs5 Quality of pain is described as aching, Is continuous, rs5
[2023-07-22 17:36] VITALS: BP 126/65; TEMP 98.1; O2SAT 100
== END 2023-07-22 17:18 | disposition home or self-care (01) ==
LOC: ER 11:37
DX: N20.1 Calculus of ureter (principal)
CPT/HCPCS: 85025; 81001; 36415; 83690; 80053; 74176; 74177; Q9967; J2405; J7030